=== PATIENT | male | born 1985 | race Two or more races ===

== ENCOUNTER 2019-11-29 14:17 | Inpatient (IN) | payer BC ==
[~2019-11-29] VITALS: Ht 177.8 cm; Wt 117.4 kg
--- NOTE | 2019-11-29 14:28 | PHYS DOC ---
Past Medical History Past Medical History: Diabetes-Type II (PRE) Past Medical History COVID 10/25 Alcohol Use: Occasionally General Adult EDM: Chief Complaint: CHEST PAIN HPI: HPI: Patient is a 34 year old female who presents with a chief complaint of chest pain that began about 4 hours prior to arrival. Patient describes burning sharp epigastric pain radiating up into the chest. Patient has nausea but no shortness of breath. Pain is worse with movement and deep breaths. Patient had COVID-19 about 7 weeks ago but has since recovered. Patient denies any recent fever or cough. Pain is 10 out of 10 at times but 5 out of 10 currently Review of Systems: Review of Systems: Constitutional: Denies fever or chills. [] Eyes: Denies change in visual acuity. [] HENT: Denies nasal congestion or sore throat. [] Respiratory: Denies cough or shortness of breath. [] Cardiovascular: Complains of chest pain but no edema GI: Complains of epigastric pain, nausea but no vomiting diarrhea : Denies dysuria. [] Musculoskeletal: Denies back pain or joint pain. [] Integument: Denies rash. [] Neurologic: Denies headache, focal weakness or sensory changes. [] Endocrine: Endorses polyuria and polydipsia Lymphatic: Denies swollen glands. [] Psychiatric: Denies depression or anxiety. [] Heart Score: Risk Factors: Risk Factors: DM, Current or recent (<one month) smoker, HTN, HLP, family history of CAD, obesity. Risk Scores: Score 0 - 3: 2.5% MACE over next 6 weeks - Discharge Home Score 4 - 6: 20.3% MACE over next 6 weeks - Admit for Clinical Observation Score 7 - 10: 72.7% MACE over next 6 weeks - Early Invasive Strategies Physical Exam: PE: Constitutional: Well developed, moderate distress non-toxic appearance. [] HENT: Normocephalic, atraumatic, bilateral external ears normal, no trismus nose normal. [] Eyes: PERRLA, EOMI, conjunctiva normal, no discharge. [] Neck: Normal range of motion, no tenderness, supple, no stridor. [] Cardiovascular:Heart rate regular rhythm, peripheral pulses intact, cap refill brisk Lungs & Thorax: Bilateral breath sounds clear, no respiratory distress Abdomen: Epigastric tenderness with guarding but no rebound no masses, no pulsatile masses. [] Skin: Warm, dry, no erythema, no rash. [] Back: No tenderness, no CVA tenderness. [] Extremities: No tenderness, no cyanosis, no clubbing, ROM intact, no edema. [] Neurologic: Alert and oriented X 3, normal motor function, normal sensory function, no focal deficits noted. [] Psychologic: Affect normal, judgement normal, mood normal. [] Current Patient Data: Labs: Laboratory Tests Test 11/29/19 14:58 11/29/19 15:28 Sodium Level 130 mmol/L Potassium Level 5.1 mmol/L Chloride Level 93 mmol/L Carbon Dioxide Level 18 mmol/L Anion Gap 19 Blood Urea Nitrogen 13 mg/dL Creatinine 0.7 mg/dL Estimated GFR (Cockcroft-Gault) 130.7 BUN/Creatinine Ratio 19 Glucose Level 440 mg/dL Calcium Level 9.4 mg/dL Total Bilirubin 1.0 mg/dL Aspartate Amino Transf (AST/SGOT) 32 U/L Alanine Aminotransferase (ALT/SGPT) 48 U/L Alkaline Phosphatase 142 U/L Troponin I Quantitative < 0.017 ng/mL Total Protein 7.7 g/dL Albumin 4.0 g/dL Albumin/Globulin Ratio 1.1 Triglycerides Level 3702 mg/dL Lipase 8452 U/L White Blood Count 16.6 x10^3/uL Red Blood Count 5.29 x10^6/uL Hemoglobin 14.1 g/dL Hematocrit 46.5 % Mean Corpuscular Volume 88 fL Mean Corpuscular Hemoglobin 27 pg Mean Corpuscular Hemoglobin Concent 30 g/dL Red Cell Distribution Width 13.6 % Platelet Count 273 x10^3/uL Neutrophils (%) (Auto) 76 % Lymphocytes (%) (Auto) 16 % Monocytes (%) (Auto) 7 % Eosinophils (%) (Auto) 1 % Basophils (%) (Auto) 1 % Neutrophils # (Auto) 12.6 x10^3/uL Lymphocytes # (Auto) 2.6 x10^3/uL Monocytes # (Auto) 1.1 x10^3/uL Eosinophils # (Auto) 0.2 x10^3/uL Basophils # (Auto) 0.1 x10^3/uL Segmented Neutrophils % 76 % Band Neutrophils % 6 % Lymphocytes % 15 % Monocytes % 3 % Toxic Granulation Slight Toxic Vacuolation Slight Platelet Estimate Adequate Current Medications Medications (Trade) Dose Ordered Sig/Cecelia Route PRN Reason Start Time Stop Time Status Last Admin Dose Admin Morphine Sulfate (Morphine Sulfate) 4 mg 1X ONCE IV 11/29/19 14:45 11/29/19 14:46 DC 11/29/19 15:01 Ondansetron HCl (Zofran) 4 mg 1X ONCE IVP 11/29/19 14:45 11/29/19 14:46 DC 11/29/19 15:00 Hydromorphone HCl (Dilaudid) 1 mg 1X ONCE IVP 11/29/19 16:00 11/29/19 16:02 DC 11/29/19 16:15 Sodium Chloride 1,000 ml @ 1,000 mls/hr 1X ONCE IV 11/29/19 16:30 11/29/19 17:29 11/29/19 16:25 Sodium Chloride 1,000 ml @ 1,000 mls/hr 1X ONCE IV 11/29/19 16:30 11/29/19 17:29 11/29/19 16:26 Insulin Human Regular 100 unit/ Sodium Chloride 101 ml @ 0 mls/hr CONT PRN IV SEE I/O RECORD 11/29/19 16:15 Ondansetron HCl (Zofran) 4 mg PRN Q8HRS PRN IV NAUSEA/VOMITING 11/29/19 16:45 11/30/19 16:44 Morphine Sulfate (Morphine Sulfate) 4 mg PRN Q2HR PRN IV PAIN 11/29/19 16:45 11/30/19 16:44 Acetaminophen (Tylenol) 650 mg PRN Q6HRS PRN PO Headaches, Temp > 101.5' 11/29/19 16:30 Lorazepam (Ativan) 1 mg PRN Q6HRS PRN PO ANXIETY / AGITATION 11/29/19 16:30 Ondansetron HCl (Zofran) 4 mg PRN Q6HRS PRN IVP NAUSEA/VOMITING 11/29/19 16:30 Info (Icu Electrolyte Protocol) 1 ea DAILY MC 11/30/19 09:00 Enoxaparin Sodium (Lovenox 40mg Syringe) 40 mg Q24H SQ 11/29/19 17:00 Sodium Chloride (Normal Saline Flush) 3 ml QSHIFT PRN IV AFTER MEDS AND BLOOD DRAWS 11/29/19 16:30 Acetaminophen/ Hydrocodone Bitart (Lortab 5/325) 1 tab PRN Q4HRS PRN PO MILD PAIN, 2ND CHOICE 11/29/19 16:30 Morphine Sulfate (Morphine Sulfate) 2 mg PRN Q1HR PRN IV PAIN 11/29/19 16:30 Senna/Docusate Sodium (Senna Plus) 1 tab BID PO 11/29/19 21:00 Sodium Chloride 1,000 ml @ 1,000 mls/hr Q1H IV 11/29/19 16:30 11/29/19 17:29 Sodium Chloride 1,000 ml @ 500 mls/hr Q2H IV 11/29/19 16:31 11/29/19 18:30 Sodium Chloride 1,000 ml @ 250 mls/hr Q4H IV 11/29/19 16:33 Sodium Chloride 1,000 ml @ 250 mls/hr Q4H IV 11/29/19 16:33 Dextrose/Sodium Chloride 1,000 ml @ 250 mls/hr Q4H IV 11/29/19 16:33 Insulin Human Regular 100 unit/ Sodium Chloride 101 ml @ 0 mls/hr CONT PRN PRN IV DKA 11/29/19 16:30 Potassium Chloride/Water 100 ml @ 100 mls/hr PRN Q1HR PRN IV HYPOKALEMIA 11/29/19 16:30 Vital Signs: Vital Signs Date Time Temp Pulse Resp B/P (MAP) Pulse Ox O2 Delivery O2 Flow Rate FiO2 11/29/19 16:50 16 99 11/29/19 16:15 20 99 Room Air 11/29/19 15:26 84 158/96 (116) 96 Room Air 11/29/19 15:01 16 96 Room Air 11/29/19 14:56 79 154/87 (109) 96 Room Air 11/29/19 14:26 77 159/101 (120) 100 Room Air 11/29/19 14:20 98.0 79 18 159/101 (120) 99 Room Air 98.0 EKG: EKG: [] EKG interpreted by me normal sinus rhythm with a rate of 70 normal axis T wave inversions in anterior leads Radiology/Procedures: Radiology/Procedures: [][facility] [address] [place], [place] [id number] IMAGING REPORT Signed PATIENT: ALFONSO BLACKBURN ACCOUNT: [id number] : 1985 LOCATION: ER AGE: 34 SEX: M EXAM STATUS: PRE ER ORD. PHYSICIAN: KO ENRIQUEZ MD REASON: CP PROCEDURE: PORTABLE CHEST 1V PORTABLE CHEST 1V Clinical indications: Chest pain COMPARISON: None available. Findings: No acute lung infiltrate or pleural effusion or pulmonary edema or lung mass or pneumothorax is seen. The heart size, pulmonary vasculature, mediastinum and both martha are unremarkable. Impression: No acute radiographic abnormality is seen. Electronically signed by: Madison Sommer MD (11/29/2019 2:48 PM) [id number] DICTATED and SIGNED BY: MADISON SOMMER MD DATE: 11/29/19 1448 Course & Med Decision Making: Course & Med Decision Making Pertinent Labs and Imaging studies reviewed. (See chart for details) [] 34-year-old male presents with epigastric pain. Patient found to have extremely high triglycerides and we cannot do a d-dimer. Patient with tenderness and guarding in epigastric area. Labs show DKA as well as pancreatitis and hypertriglyceridemia. Patient will be given 2 L of fluids and an insulin infusion. On reassessment patient does feel better but still has some abdominal pain. Patient being admitted to the ICU by Dr. chavez Critical care time was [35] minutes which includes time at bedside, spent in discussion of patient's care with specialist and/or family members, with interpretation of laboratory and/or radiological studies and is exclusive of procedures. Critical conditions: Hypertriglyceridemia, DKA, pancreatitis Critical interventions IV fluids and insulin infusion and admission to ICU Dragon Disclaimer: Mora Disclaimer: This electronic medical record was generated, in whole or in part, using a voice recognition dictation system. Departure Departure Impression: Primary Impression: Pancreatitis Additional Impressions: Hypertriglyceridemia Chest pain DKA (diabetic ketoacidoses) Disposition: ADMITTED INPATIENT Condition: GUARDED Justicifation of Admission Dx: Justifications for Admission: Justification of Admission Dx: Yes KO ENRIQUEZ MD Nov 29, 2019 14:28
[2019-11-29] MEDS ORDERED: ONDANSETRON PF 4 MG/2 ML VIAL. IVP ONE (14:45)
[2019-11-29] MEDS ORDERED: MORPHINE SULFATE 4 MG/ML VIAL. IV ONE (14:45)
--- NOTE | 2019-11-29 14:51 | RAD ---
PORTABLE CHEST 1V Clinical indications: Chest pain COMPARISON: None available. Findings: No acute lung infiltrate or pleural effusion or pulmonary edema or lung mass or pneumothorax is seen. The heart size, pulmonary vasculature, mediastinum and both martha are unremarkable. Impression: No acute radiographic abnormality is seen. Electronically signed by: Preston Sommer MD (11/29/2019 2:48 PM) [id number]
[2019-11-29 15:52] LABS: ALBUMIN/GLOBULIN RATIO 1.1 (1.0-1.7); CALCIUM 9.4 mg/dL (8.5-10.1); CREATININE 0.7 mg/dL (0.7-1.3); GFR 130.7; POTASSIUM 5.1 mmol/L (3.5-5.1)
[2019-11-29 15:57] LABS: TOTAL PROTEIN 7.7 g/dL (6.4-8.2)
[2019-11-29] MEDS ORDERED: HYDROmorphone 2 MG/ML VIAL IVP ONE (16:00)
[2019-11-29 16:15] LABS: HEMATOCRIT 46.5 % (39.0-53.0); MEAN CORPUSCULAR HEMOGLOBIN 27 pg (25-35); MEAN CORPUSCULAR HGB CONC 30 g/dL (31-37); MEAN CORPUSCULAR VOLUME 88 fL (79-100); RED BLOOD COUNT 5.29 x10^6/uL (4.30-5.70); WHITE BLOOD COUNT 16.6 x10^3/uL (4.0-11.0)
[2019-11-29] MEDS ORDERED: INSULIN REGULAR VIAL 100 UNIT in IV NORMAL SALINE 100ML 100 ML IV PRN (16:15)
[2019-11-29 16:16] LABS: EOS % 1 % (0-3); LYMPH % 16 % (24-48); MONO % 7 % (0-9); NEUT % 76 % (31-73); PLATELET COUNT 273 x10^3/uL (140-400); RED CELL DISTRIBUTION WIDTH 13.6 % (11.5-14.5)
[2019-11-29 16:17] LABS: BASO % 1 % (0-3); LYMPH # 2.6 x10^3/uL (1.0-4.8); MONO # 1.1 x10^3/uL (0.0-1.1); NEUT # 12.6 x10^3/uL (1.8-7.7)
[2019-11-29 16:21] LABS: HEMOGLOBIN 14.1 g/dL (13.0-17.5)
[2019-11-29 16:22] LABS: BASO # 0.1 x10^3/uL (0.0-0.2); EOS # 0.2 x10^3/uL (0.0-0.7)
[2019-11-29] MEDS ORDERED: 0.9 % SODIUM CHLORIDE 10 ML DISP.SYRIN. IV PRN (16:30)
[2019-11-29] MEDS ORDERED: IV NORMAL SALINE 1000ML BAG 1,000 ML IV ONE ×2 (16:30)
[2019-11-29] MEDS ORDERED: IV NORMAL SALINE 1000ML BAG 1,000 ML IV SCH ×3 (16:30→19:30)
[2019-11-29] MEDS ORDERED: MORPHINE SULFATE 2 MG/ML VIAL. IV PRN (16:30)
[2019-11-29] MEDS ORDERED: ACETAMINOPHEN 325 MG TABLET. PO PRN (16:30)
[2019-11-29] MEDS ORDERED: ONDANSETRON PF 4 MG/2 ML VIAL. IVP PRN (16:30)
[2019-11-29] MEDS ORDERED: POTASSIUM CHLORIDE 10MEQ 100 ML IV PRN (16:30)
[2019-11-29] MEDS ORDERED: LORazepam 1 MG TABLET PO PRN (16:30)
[2019-11-29] MEDS ORDERED: IV 1/2 NORMAL SALINE 1,000 ML IV SCH ×2 (16:31→16:33)
[2019-11-29] MEDS ORDERED: IV DEXTROSE 5 %-0.45 % NACL 1,000 ML IV SCH (16:33)
[2019-11-29] MEDS ORDERED: ONDANSETRON PF 4 MG/2 ML VIAL. IV PRN (16:45)
[2019-11-29 16:48] LABS: % BANDS 6 % (0-9); % LYMPHS 15 % (24-48); % MONOS 3 % (0-10); % SEGS 76 % (35-66); PLT ESTIMATE ADEQUATE (ADEQUATE)
[2019-11-29 16:49] LABS: TOXIC GRANULATION SLIGHT; TOXIC VACUOLATION SLIGHT
--- NOTE | 2019-11-29 17:39 | PDOC1 ---
History and Physical Date of Admission Date of Admission 11/29/2019 Identification/Chief Complaint Chief Complaint My stomach hurts Source Source: Chart review, Patient History of Present Illness History of Present Illness 34-year-old gentleman with no significant past medical history who was in his usual state of health until approximately 3 weeks prior to his admission when he started noticing increased urination more thirst than usual. Patient denies odynophagia and he has been in his usual state of health until this morning around 10:00 in the morning he had not eaten yet and after drinking a glass of water he had the sudden onset of epigastric pain with vomiting of the gastric content. The patient felt quite ill with subsequent nausea after the event no diarrhea no dietary transgressions prior to this event. The patient due to the discomfort was brought to the emergency department for evaluation the patient did not also complain of an epigastric pain with bandlike fashion radiation to t he back that he rated at a 10 out of 10 intensity sharp in nature with no other associated symptoms except for the above-mentioned nausea and vomiting. He has been evaluated in the emergency department and found to have hypertriglyceridemia and he is in DKA. Of note is that the patient was told about a month ago that he was prediabetic but most likely the patient has been a diabetic for a long time. He denies any family history of dyslipidemia and he will be admitted to the intensive care unit for further evaluation and treatment. The patient is in hemodynamically stable condition his mental status is normal plan of care has been explained detail all concerns were addressed to the best my ability Past Medical History Past Medical History No significant past medical history Past Surgical History Past Surgical History: No pertinent history Family History Family History: No Significant Social History Smoke: No ALCOHOL: none Drugs: None Current Problem List Problem List Problems Medical Problems: (1) Chest pain Status: Acute (2) DKA (diabetic ketoacidoses) Status: Acute (3) Hypertriglyceridemia Status: Acute (4) Pancreatitis Status: Acute Current Medications Current Medications Current Medications Medications (Trade) Dose Ordered Sig/Cecelia Start Time Stop Time Status Last Admin Dose Admin Acetaminophen (Tylenol) 650 mg PRN Q6HRS PRN 11/29/19 16:30 Acetaminophen/ Hydrocodone Bitart (Lortab 5/325) 1 tab PRN Q4HRS PRN 11/29/19 16:30 Dextrose/Sodium Chloride 1,000 ml @ 250 mls/hr Q4H 11/29/19 16:33 Enoxaparin Sodium (Lovenox 40mg Syringe) 40 mg Q24H 11/29/19 17:00 Hydromorphone HCl (Dilaudid) 1 mg 1X ONCE 11/29/19 16:00 11/29/19 16:02 DC 11/29/19 16:15 1 MG Info (Icu Electrolyte Protocol) 1 ea DAILY 11/30/19 09:00 Insulin Human Regular 100 unit/ Sodium Chloride 101 ml @ 0 mls/hr CONT PRN PRN 11/29/19 16:30 Lorazepam (Ativan) 1 mg PRN Q6HRS PRN 11/29/19 16:30 Morphine Sulfate (Morphine Sulfate) 2 mg PRN Q1HR PRN 11/29/19 16:30 Ondansetron HCl (Zofran) 4 mg PRN Q6HRS PRN 11/29/19 16:30 Potassium Chloride/Water 100 ml @ 100 mls/hr PRN Q1HR PRN 11/29/19 16:30 Senna/Docusate Sodium (Senna Plus) 1 tab BID 11/29/19 21:00 Sodium Chloride 1,000 ml @ 250 mls/hr Q4H 11/29/19 16:33 Sodium Chloride (Normal Saline Flush) 3 ml QSHIFT PRN 11/29/19 16:30 Allergies Allergies Allergies Coded Allergies Type Severity Reaction Last Updated Verified No Known Drug Allergies 11/29/19 No ROS Review of System CONSTITUTIONAL: No fever or chills EYES: No recent changes SKIN: No rash or itching CARDIOVASCULAR: No chest pain, syncope, palpitations, or edema RESPIRATORY: No SOB or cough GASTROINTESTINAL: No nausea, vomiting or abdominal pain NEUROLOGICAL: No headaches or weakness ENDOCRINE: No cold or heat intolerance GENITOURINARY: No urgency or frequency of urination MUSCULOSKELETAL: No back pain or joint pain LYMPHATICS: No enlarged lymph nodes PSYCHIATRIC: No anxiety or depression Physical Exam Physical Exam GEN.: No apparent distress. Alert and oriented. HEENT: Head is normocephalic, atraumatic NECK: Supple. LUNGS: Clear to auscultation. HEART: RRR, S1, S2 present. Peripheral pulses intact ABDOMEN: Soft, nontender. Positive bowel sounds. EXTREMITIES: Without any cyanosis. NEUROLOGIC: Normal speech, normal tone PSYCHIATRIC: Normal affect, normal mood. SKIN: No ulcerations Vitals Vitals Vital Signs Date Time Temp Pulse Resp B/P (MAP) Pulse Ox O2 Delivery O2 Flow Rate FiO2 11/29/19 16:50 16 99 11/29/19 16:15 Room Air 11/29/19 15:26 84 158/96 (116) 11/29/19 14:20 98.0 98.0 Labs Labs Laboratory Tests Test 11/29/19 14:58 11/29/19 15:28 Sodium Level 130 mmol/L (136-145) Potassium Level 5.1 mmol/L (3.5-5.1) Chloride Level 93 mmol/L (98-107) Carbon Dioxide Level 18 mmol/L (21-32) Anion Gap 19 (6-14) Blood Urea Nitrogen 13 mg/dL (8-26) Creatinine 0.7 mg/dL (0.7-1.3) Estimated GFR (Cockcroft-Gault) 130.7 BUN/Creatinine Ratio 19 (6-20) Glucose Level 440 mg/dL (70-99) Calcium Level 9.4 mg/dL (8.5-10.1) Total Bilirubin 1.0 mg/dL (0.2-1.0) Aspartate Amino Transf (AST/SGOT) 32 U/L (15-37) Alanine Aminotransferase (ALT/SGPT) 48 U/L (16-63) Alkaline Phosphatase 142 U/L (46-116) Troponin I Quantitative < 0.017 ng/mL (0.000-0.055) Total Protein 7.7 g/dL (6.4-8.2) Albumin 4.0 g/dL (3.4-5.0) Albumin/Globulin Ratio 1.1 (1.0-1.7) Triglycerides Level 3702 mg/dL (0-150) Lipase 8452 U/L (73-393) White Blood Count 16.6 x10^3/uL (4.0-11.0) Red Blood Count 5.29 x10^6/uL (4.30-5.70) Hemoglobin 14.1 g/dL (13.0-17.5) Hematocrit 46.5 % (39.0-53.0) Mean Corpuscular Volume 88 fL (79-100) Mean Corpuscular Hemoglobin 27 pg (25-35) Mean Corpuscular Hemoglobin Concent 30 g/dL (31-37) Red Cell Distribution Width 13.6 % (11.5-14.5) Platelet Count 273 x10^3/uL (140-400) Neutrophils (%) (Auto) 76 % (31-73) Lymphocytes (%) (Auto) 16 % (24-48) Monocytes (%) (Auto) 7 % (0-9) Eosinophils (%) (Auto) 1 % (0-3) Basophils (%) (Auto) 1 % (0-3) Neutrophils # (Auto) 12.6 x10^3/uL (1.8-7.7) Lymphocytes # (Auto) 2.6 x10^3/uL (1.0-4.8) Monocytes # (Auto) 1.1 x10^3/uL (0.0-1.1) Eosinophils # (Auto) 0.2 x10^3/uL (0.0-0.7) Basophils # (Auto) 0.1 x10^3/uL (0.0-0.2) Segmented Neutrophils % 76 % (35-66) Band Neutrophils % 6 % (0-9) Lymphocytes % 15 % (24-48) Monocytes % 3 % (0-10) Toxic Granulation Slight Toxic Vacuolation Slight Platelet Estimate Adequate (ADEQUATE) Laboratory Tests Test 11/29/19 14:58 11/29/19 15:28 Sodium Level 130 mmol/L (136-145) Potassium Level 5.1 mmol/L (3.5-5.1) Chloride Level 93 mmol/L (98-107) Carbon Dioxide Level 18 mmol/L (21-32) Anion Gap 19 (6-14) Blood Urea Nitrogen 13 mg/dL (8-26) Creatinine 0.7 mg/dL (0.7-1.3) Estimated GFR (Cockcroft-Gault) 130.7 BUN/Creatinine Ratio 19 (6-20) Glucose Level 440 mg/dL (70-99) Calcium Level 9.4 mg/dL (8.5-10.1) Total Bilirubin 1.0 mg/dL (0.2-1.0) Aspartate Amino Transf (AST/SGOT) 32 U/L (15-37) Alanine Aminotransferase (ALT/SGPT) 48 U/L (16-63) Alkaline Phosphatase 142 U/L (46-116) Troponin I Quantitative < 0.017 ng/mL (0.000-0.055) Total Protein 7.7 g/dL (6.4-8.2) Albumin 4.0 g/dL (3.4-5.0) Albumin/Globulin Ratio 1.1 (1.0-1.7) Triglycerides Level 3702 mg/dL (0-150) Lipase 8452 U/L (73-393) White Blood Count 16.6 x10^3/uL (4.0-11.0) Red Blood Count 5.29 x10^6/uL (4.30-5.70) Hemoglobin 14.1 g/dL (13.0-17.5) Hematocrit 46.5 % (39.0-53.0) Mean Corpuscular Volume 88 fL (79-100) Mean Corpuscular Hemoglobin 27 pg (25-35) Mean Corpuscular Hemoglobin Concent 30 g/dL (31-37) Red Cell Distribution Width 13.6 % (11.5-14.5) Platelet Count 273 x10^3/uL (140-400) Neutrophils (%) (Auto) 76 % (31-73) Lymphocytes (%) (Auto) 16 % (24-48) Monocytes (%) (Auto) 7 % (0-9) Eosinophils (%) (Auto) 1 % (0-3) Basophils (%) (Auto) 1 % (0-3) Neutrophils # (Auto) 12.6 x10^3/uL (1.8-7.7) Lymphocytes # (Auto) 2.6 x10^3/uL (1.0-4.8) Monocytes # (Auto) 1.1 x10^3/uL (0.0-1.1) Eosinophils # (Auto) 0.2 x10^3/uL (0.0-0.7) Basophils # (Auto) 0.1 x10^3/uL (0.0-0.2) Segmented Neutrophils % 76 % (35-66) Band Neutrophils % 6 % (0-9) Lymphocytes % 15 % (24-48) Monocytes % 3 % (0-10) Toxic Granulation Slight Toxic Vacuolation Slight Platelet Estimate Adequate (ADEQUATE) VTE Prophylaxis Ordered VTE Prophylaxis Devices: No VTE Pharmacological Prophylaxi: Yes Assessment/Plan Assessment/Plan Diabetic ketoacidosis High anion gap metabolic acidosis Pancreatitis secondary to hypertriglyceridemia Obesity with a BMI of 35 Severe dehydration Pseudohyponatremia Plan Admit to ICU DKA Follow BMP serially IV fluid resisted Insulin drip VT prophylaxis low Further recommendations based on the clinical DEBORAH PONCE MD Nov 29, 2019 17:39
[2019-11-29] MEDS: MORPHINE SULFATE 4 MG/ML VIAL. IV PRN ×3 (18:17→22:57)
[2019-11-29] MEDS: INSULIN REGULAR VIAL 100 UNIT in IV NORMAL SALINE 100ML 100 ML IV PRN (18:41)
[2019-11-29 19:00] VITALS: BP 180/88
[2019-11-29] MEDS: fentaNYL PF VIAL 100 MCG/2 ML VIAL IVP PRN ×2 (19:30→22:19)
[2019-11-29] MEDS: ENOXAPARIN 40 MG/0.4 ML SYRINGE. SQ SCH (19:34)
[2019-11-29 20:00] VITALS: BP 173/94
[2019-11-29 20:41] LABS: CREATININE 0.5 mg/dL (0.7-1.3); GFR 192.7; PHOSPHORUS 4.3 mg/dL (2.6-4.7)
[2019-11-29 20:44] LABS: POTASSIUM 4.7 mmol/L (3.5-5.1)
[2019-11-29] MEDS: SENNOSIDES/DOCUSATE 8.6/50MG TABLET. PO SCH (20:58)
[2019-11-29 21:00] VITALS: BP 160/90
[2019-11-29] MEDS: HYDROcodone/APAP 5/325MG 1 TAB TABLET PO PRN (21:12)
[2019-11-29] MEDS: POTASSIUM CHLORIDE 10MEQ 100 ML IV SCH ×2 (21:12→22:12)
[2019-11-29 22:00] VITALS: BP 180/86
[2019-11-29] MEDS ORDERED: ENALAPRILAT 1.25 MG/ML VIAL. IVP PRN (22:00)
[2019-11-29 23:00] VITALS: BP 154/69
[2019-11-29] MEDS: IV DEXTROSE 5% - 0.9 % NACL 1,000 ML IV SCH (23:07)
[2019-11-30] VITALS (16 sets, daily range): BP systolic 114–158; BP diastolic 49–86
[2019-11-30 00:42] LABS: CALCIUM 7.3 mg/dL (8.5-10.1); CREATININE 0.5 mg/dL (0.7-1.3); GFR 192.7; PHOSPHORUS 3.8 mg/dL (2.6-4.7)
[2019-11-30] MEDS: MORPHINE SULFATE 4 MG/ML VIAL. IV PRN ×9 (00:54→21:06)
[2019-11-30] MEDS: POTASSIUM CHLORIDE 10MEQ 100 ML IV SCH ×4 (00:57→07:48)
[2019-11-30] MEDS: INSULIN REGULAR VIAL 100 UNIT in IV NORMAL SALINE 100ML 100 ML IV PRN (02:49)
[2019-11-30] MEDS: IV NORMAL SALINE 1000ML BAG 1,000 ML IV SCH ×6 (02:59→23:00)
[2019-11-30] MEDS: IV DEXTROSE 5% - 0.9 % NACL 1,000 ML IV SCH ×6 (02:59→21:07)
[2019-11-30 05:30] LABS: BASO # 0.1 x10^3/uL (0.0-0.2); BASO % 1 % (0-3); EOS # 0.1 x10^3/uL (0.0-0.7); EOS % 1 % (0-3); HEMATOCRIT 45.3 % (39.0-53.0); LYMPH # 2.1 x10^3/uL (1.0-4.8); LYMPH % 21 % (24-48); MEAN CORPUSCULAR VOLUME 87 fL (79-100); MONO # 0.7 x10^3/uL (0.0-1.1); MONO % 7 % (0-9); NEUT # 7.1 x10^3/uL (1.8-7.7); NEUT % 71 % (31-73); PLATELET COUNT 237 x10^3/uL (140-400); RED BLOOD COUNT 5.19 x10^6/uL (4.30-5.70); RED CELL DISTRIBUTION WIDTH 13.5 % (11.5-14.5); WHITE BLOOD COUNT 10.1 x10^3/uL (4.0-11.0)
[2019-11-30 05:52] LABS: CALCIUM 6.1 mg/dL (8.5-10.1); CREATININE 0.6 mg/dL (0.7-1.3); GFR 156.1; MAGNESIUM 1.8 mg/dL (1.8-2.4); PHOSPHORUS 2.5 mg/dL (2.6-4.7)
[2019-11-30 05:58] LABS: MEAN CORPUSCULAR HEMOGLOBIN 30 pg (25-35); MEAN CORPUSCULAR HGB CONC 35 g/dL (31-37)
[2019-11-30 06:00] LABS: HEMOGLOBIN 15.8 g/dL (13.0-17.5)
--- NOTE | 2019-11-30 07:46 | EKG ---
[facility] [address] [place] [address] Test Date: 2019-11-29 Test Time: 14:21:23 Pat Name: ALFONSO BLACKBURN Department: Room: Gender: M [employer] Officer: EFRAIN : 1985 Requested By: KO ENRIQUEZ Order Number: [id number] Reading MD: Measurements Intervals [place] Rate: 70 P: 9 IN: 126 QRS: 82 QRSD: 104 T: -20 QT: 376 QTc: 409 Interpretive Statements SINUS RHYTHM T ABNORMALITY IN INFERIOR LEADS ABNORMAL ECG RI6.02 No previous ECG available for comparison
[2019-11-30] MEDS: INSULIN LISPRO 300 UNITS/3 ML VIAL. SQ SCH ×3 (08:28→17:53)
[2019-11-30] MEDS ORDERED: INSULIN GLARGINE SYRINGE. SQ SCH (09:00)
[2019-11-30] MEDS: ELECTROLYTE (ICU) PROTOCOL. MC SCH (09:00)
[2019-11-30] MEDS: SENNOSIDES/DOCUSATE 8.6/50MG TABLET. PO SCH ×2 (09:00→21:00)
[2019-11-30 10:05] LABS: CALCIUM 6.3 mg/dL (8.5-10.1); CREATININE 0.7 mg/dL (0.7-1.3); GFR 130.7; MAGNESIUM 1.8 mg/dL (1.8-2.4); PHOSPHORUS 2.3 mg/dL (2.6-4.7); POTASSIUM 3.8 mmol/L (3.5-5.1)
--- NOTE | 2019-11-30 10:55 | NUR ---
SS following for discharge planning. SS reviewed pt chart and discussed with pt RN. Pt is from home with family and is currently on room air. Pt has new onset diabetes and pancreatitis. Discharge plan is to home when medically ready. SS will continue to follow for discharge planning.
--- NOTE | 2019-11-30 11:56 | PDOC ---
PROGRESS NOTES Date of Service: DATE: 11/30/19 TIME: 11:52 Chief Complaint Chief Complaint Diabetic ketoacidosis New diagnosis of diabetes, hba1c pending High anion gap metabolic acidosis Pancreatitis secondary to hypertriglyceridemia Obesity with a BMI of 35 Severe dehydration Pseudohyponatremia Plan may be moved out of the icu when bed available follow hba1c lantus and lispro VT prophylaxis low Further recommendations based on the clinical History of Present Illness History of Present Illness No acute events reported overnight, case discussed with nursing staff patient in no acute distress no complaints during my visit, still complaining of abdominal discomfort Vitals Vitals Vital Signs Date Time Temp Pulse Resp B/P (MAP) Pulse Ox O2 Delivery O2 Flow Rate FiO2 11/30/19 10:00 87 14 136/75 (95) 92 Room Air 11/30/19 08:00 98.1 98.1 Labs LABS Laboratory Tests Test 11/29/19 14:58 11/29/19 15:28 11/29/19 18:30 11/29/19 18:35 Sodium Level 130 mmol/L (136-145) Potassium Level 5.1 mmol/L (3.5-5.1) Chloride Level 93 mmol/L (98-107) Carbon Dioxide Level 18 mmol/L (21-32) Anion Gap 19 (6-14) Blood Urea Nitrogen 13 mg/dL (8-26) Creatinine 0.7 mg/dL (0.7-1.3) Estimated GFR (Cockcroft-Gault) 130.7 BUN/Creatinine Ratio 19 (6-20) Glucose Level 440 mg/dL (70-99) Calcium Level 9.4 mg/dL (8.5-10.1) Total Bilirubin 1.0 mg/dL (0.2-1.0) Aspartate Amino Transf (AST/SGOT) 32 U/L (15-37) Alanine Aminotransferase (ALT/SGPT) 48 U/L (16-63) Alkaline Phosphatase 142 U/L (46-116) Troponin I Quantitative < 0.017 ng/mL (0.000-0.055) < 0.017 ng/mL (0.000-0.055) Total Protein 7.7 g/dL (6.4-8.2) Albumin 4.0 g/dL (3.4-5.0) Albumin/Globulin Ratio 1.1 (1.0-1.7) Triglycerides Level 3702 mg/dL (0-150) Lipase 8452 U/L (73-393) White Blood Count 16.6 x10^3/uL (4.0-11.0) Red Blood Count 5.29 x10^6/uL (4.30-5.70) Hemoglobin 14.1 g/dL (13.0-17.5) Hematocrit 46.5 % (39.0-53.0) Mean Corpuscular Volume 88 fL (79-100) Mean Corpuscular Hemoglobin 27 pg (25-35) Mean Corpuscular Hemoglobin Concent 30 g/dL (31-37) Red Cell Distribution Width 13.6 % (11.5-14.5) Platelet Count 273 x10^3/uL (140-400) Neutrophils (%) (Auto) 76 % (31-73) Lymphocytes (%) (Auto) 16 % (24-48) Monocytes (%) (Auto) 7 % (0-9) Eosinophils (%) (Auto) 1 % (0-3) Basophils (%) (Auto) 1 % (0-3) Neutrophils # (Auto) 12.6 x10^3/uL (1.8-7.7) Lymphocytes # (Auto) 2.6 x10^3/uL (1.0-4.8) Monocytes # (Auto) 1.1 x10^3/uL (0.0-1.1) Eosinophils # (Auto) 0.2 x10^3/uL (0.0-0.7) Basophils # (Auto) 0.1 x10^3/uL (0.0-0.2) Segmented Neutrophils % 76 % (35-66) Band Neutrophils % 6 % (0-9) Lymphocytes % 15 % (24-48) Monocytes % 3 % (0-10) Toxic Granulation Slight Toxic Vacuolation Slight Platelet Estimate Adequate (ADEQUATE) Magnesium Level 1.9 mg/dL (1.8-2.4) Glucose (Fingerstick) 311 mg/dL (70-99) Test 11/29/19 19:28 11/29/19 19:51 11/29/19 19:58 11/29/19 20:55 Sodium Level 133 mmol/L (136-145) Potassium Level 4.7 mmol/L (3.5-5.1) Chloride Level 97 mmol/L (98-107) Carbon Dioxide Level 16 mmol/L (21-32) Anion Gap 20 (6-14) Blood Urea Nitrogen 11 mg/dL (8-26) Creatinine 0.5 mg/dL (0.7-1.3) Estimated GFR (Cockcroft-Gault) 192.7 Glucose Level 284 mg/dL (70-99) Calcium Level 8.0 mg/dL (8.5-10.1) Phosphorus Level 4.3 mg/dL (2.6-4.7) Magnesium Level 2.0 mg/dL (1.8-2.4) Glucose (Fingerstick) 277 mg/dL (70-99) 270 mg/dL (70-99) Troponin I Quantitative < 0.017 ng/mL (0.000-0.055) Test 11/29/19 21:58 11/29/19 23:02 11/29/19 23:51 11/29/19 23:57 Glucose (Fingerstick) 252 mg/dL (70-99) 241 mg/dL (70-99) 265 mg/dL (70-99) Sodium Level 133 mmol/L (136-145) Potassium Level 5.0 mmol/L (3.5-5.1) Chloride Level 99 mmol/L (98-107) Carbon Dioxide Level 18 mmol/L (21-32) Anion Gap 16 (6-14) Blood Urea Nitrogen 11 mg/dL (8-26) Creatinine 0.5 mg/dL (0.7-1.3) Estimated GFR (Cockcroft-Gault) 192.7 Glucose Level 271 mg/dL (70-99) Calcium Level 7.3 mg/dL (8.5-10.1) Phosphorus Level 3.8 mg/dL (2.6-4.7) Magnesium Level 2.0 mg/dL (1.8-2.4) Test 11/30/19 00:52 11/30/19 01:52 11/30/19 02:55 11/30/19 03:53 Glucose (Fingerstick) 258 mg/dL (70-99) 263 mg/dL (70-99) 261 mg/dL (70-99) 212 mg/dL (70-99) Test 11/30/19 04:51 11/30/19 05:15 11/30/19 05:51 11/30/19 06:36 Glucose (Fingerstick) 224 mg/dL (70-99) 207 mg/dL (70-99) 201 mg/dL (70-99) White Blood Count 10.1 x10^3/uL (4.0-11.0) Red Blood Count 5.19 x10^6/uL (4.30-5.70) Hemoglobin 15.8 g/dL (13.0-17.5) Hematocrit 45.3 % (39.0-53.0) Mean Corpuscular Volume 87 fL (79-100) Mean Corpuscular Hemoglobin 30 pg (25-35) Mean Corpuscular Hemoglobin Concent 35 g/dL (31-37) Red Cell Distribution Width 13.5 % (11.5-14.5) Platelet Count 237 x10^3/uL (140-400) Neutrophils (%) (Auto) 71 % (31-73) Lymphocytes (%) (Auto) 21 % (24-48) Monocytes (%) (Auto) 7 % (0-9) Eosinophils (%) (Auto) 1 % (0-3) Basophils (%) (Auto) 1 % (0-3) Neutrophils # (Auto) 7.1 x10^3/uL (1.8-7.7) Lymphocytes # (Auto) 2.1 x10^3/uL (1.0-4.8) Monocytes # (Auto) 0.7 x10^3/uL (0.0-1.1) Eosinophils # (Auto) 0.1 x10^3/uL (0.0-0.7) Basophils # (Auto) 0.1 x10^3/uL (0.0-0.2) Sodium Level 133 mmol/L (136-145) Potassium Level 4.0 mmol/L (3.5-5.1) Chloride Level 101 mmol/L (98-107) Carbon Dioxide Level 22 mmol/L (21-32) Anion Gap 10 (6-14) Blood Urea Nitrogen 7 mg/dL (8-26) Creatinine 0.6 mg/dL (0.7-1.3) Estimated GFR (Cockcroft-Gault) 156.1 Glucose Level 231 mg/dL (70-99) Calcium Level 6.1 mg/dL (8.5-10.1) Phosphorus Level 2.5 mg/dL (2.6-4.7) Magnesium Level 1.8 mg/dL (1.8-2.4) Test 11/30/19 07:45 11/30/19 09:44 Glucose (Fingerstick) 164 mg/dL (70-99) Sodium Level 135 mmol/L (136-145) Potassium Level 3.8 mmol/L (3.5-5.1) Chloride Level 103 mmol/L (98-107) Carbon Dioxide Level 21 mmol/L (21-32) Anion Gap 11 (6-14) Blood Urea Nitrogen 6 mg/dL (8-26) Creatinine 0.7 mg/dL (0.7-1.3) Estimated GFR (Cockcroft-Gault) 130.7 Glucose Level 170 mg/dL (70-99) Calcium Level 6.3 mg/dL (8.5-10.1) Phosphorus Level 2.3 mg/dL (2.6-4.7) Magnesium Level 1.8 mg/dL (1.8-2.4) Review of Systems Review of Systems 10 point review of system is negative Assessment and Plan Assessmemt and Plan Problems Medical Problems: (1) Chest pain Status: Acute (2) DKA (diabetic ketoacidoses) Status: Acute (3) Hypertriglyceridemia Status: Acute (4) Pancreatitis Status: Acute Comment Review of Relevant I have reviewed the following items justino (where applicable) has been applied. Labs Laboratory Tests Test 11/29/19 14:58 11/29/19 15:28 11/29/19 18:30 11/29/19 18:35 Sodium Level 130 mmol/L (136-145) Potassium Level 5.1 mmol/L (3.5-5.1) Chloride Level 93 mmol/L (98-107) Carbon Dioxide Level 18 mmol/L (21-32) Anion Gap 19 (6-14) Blood Urea Nitrogen 13 mg/dL (8-26) Creatinine 0.7 mg/dL (0.7-1.3) Estimated GFR (Cockcroft-Gault) 130.7 BUN/Creatinine Ratio 19 (6-20) Glucose Level 440 mg/dL (70-99) Calcium Level 9.4 mg/dL (8.5-10.1) Total Bilirubin 1.0 mg/dL (0.2-1.0) Aspartate Amino Transf (AST/SGOT) 32 U/L (15-37) Alanine Aminotransferase (ALT/SGPT) 48 U/L (16-63) Alkaline Phosphatase 142 U/L (46-116) Troponin I Quantitative < 0.017 ng/mL (0.000-0.055) < 0.017 ng/mL (0.000-0.055) Total Protein 7.7 g/dL (6.4-8.2) Albumin 4.0 g/dL (3.4-5.0) Albumin/Globulin Ratio 1.1 (1.0-1.7) Triglycerides Level 3702 mg/dL (0-150) Lipase 8452 U/L (73-393) White Blood Count 16.6 x10^3/uL (4.0-11.0) Red Blood Count 5.29 x10^6/uL (4.30-5.70) Hemoglobin 14.1 g/dL (13.0-17.5) Hematocrit 46.5 % (39.0-53.0) Mean Corpuscular Volume 88 fL (79-100) Mean Corpuscular Hemoglobin 27 pg (25-35) Mean Corpuscular Hemoglobin Concent 30 g/dL (31-37) Red Cell Distribution Width 13.6 % (11.5-14.5) Platelet Count 273 x10^3/uL (140-400) Neutrophils (%) (Auto) 76 % (31-73) Lymphocytes (%) (Auto) 16 % (24-48) Monocytes (%) (Auto) 7 % (0-9) Eosinophils (%) (Auto) 1 % (0-3) Basophils (%) (Auto) 1 % (0-3) Neutrophils # (Auto) 12.6 x10^3/uL (1.8-7.7) Lymphocytes # (Auto) 2.6 x10^3/uL (1.0-4.8) Monocytes # (Auto) 1.1 x10^3/uL (0.0-1.1) Eosinophils # (Auto) 0.2 x10^3/uL (0.0-0.7) Basophils # (Auto) 0.1 x10^3/uL (0.0-0.2) Segmented Neutrophils % 76 % (35-66) Band Neutrophils % 6 % (0-9) Lymphocytes % 15 % (24-48) Monocytes % 3 % (0-10) Toxic Granulation Slight Toxic Vacuolation Slight Platelet Estimate Adequate (ADEQUATE) Magnesium Level 1.9 mg/dL (1.8-2.4) Glucose (Fingerstick) 311 mg/dL (70-99) Test 11/29/19 19:28 11/29/19 19:51 11/29/19 19:58 11/29/19 20:55 Sodium Level 133 mmol/L (136-145) Potassium Level 4.7 mmol/L (3.5-5.1) Chloride Level 97 mmol/L (98-107) Carbon Dioxide Level 16 mmol/L (21-32) Anion Gap 20 (6-14) Blood Urea Nitrogen 11 mg/dL (8-26) Creatinine 0.5 mg/dL (0.7-1.3) Estimated GFR (Cockcroft-Gault) 192.7 Glucose Level 284 mg/dL (70-99) Calcium Level 8.0 mg/dL (8.5-10.1) Phosphorus Level 4.3 mg/dL (2.6-4.7) Magnesium Level 2.0 mg/dL (1.8-2.4) Glucose (Fingerstick) 277 mg/dL (70-99) 270 mg/dL (70-99) Troponin I Quantitative < 0.017 ng/mL (0.000-0.055) Test 11/29/19 21:58 11/29/19 23:02 11/29/19 23:51 11/29/19 23:57 Glucose (Fingerstick) 252 mg/dL (70-99) 241 mg/dL (70-99) 265 mg/dL (70-99) Sodium Level 133 mmol/L (136-145) Potassium Level 5.0 mmol/L (3.5-5.1) Chloride Level 99 mmol/L (98-107) Carbon Dioxide Level 18 mmol/L (21-32) Anion Gap 16 (6-14) Blood Urea Nitrogen 11 mg/dL (8-26) Creatinine 0.5 mg/dL (0.7-1.3) Estimated GFR (Cockcroft-Gault) 192.7 Glucose Level 271 mg/dL (70-99) Calcium Level 7.3 mg/dL (8.5-10.1) Phosphorus Level 3.8 mg/dL (2.6-4.7) Magnesium Level 2.0 mg/dL (1.8-2.4) Test 11/30/19 00:52 11/30/19 01:52 11/30/19 02:55 11/30/19 03:53 Glucose (Fingerstick) 258 mg/dL (70-99) 263 mg/dL (70-99) 261 mg/dL (70-99) 212 mg/dL (70-99) Test 11/30/19 04:51 11/30/19 05:15 11/30/19 05:51 11/30/19 06:36 Glucose (Fingerstick) 224 mg/dL (70-99) 207 mg/dL (70-99) 201 mg/dL (70-99) White Blood Count 10.1 x10^3/uL (4.0-11.0) Red Blood Count 5.19 x10^6/uL (4.30-5.70) Hemoglobin 15.8 g/dL (13.0-17.5) Hematocrit 45.3 % (39.0-53.0) Mean Corpuscular Volume 87 fL (79-100) Mean Corpuscular Hemoglobin 30 pg (25-35) Mean Corpuscular Hemoglobin Concent 35 g/dL (31-37) Red Cell Distribution Width 13.5 % (11.5-14.5) Platelet Count 237 x10^3/uL (140-400) Neutrophils (%) (Auto) 71 % (31-73) Lymphocytes (%) (Auto) 21 % (24-48) Monocytes (%) (Auto) 7 % (0-9) Eosinophils (%) (Auto) 1 % (0-3) Basophils (%) (Auto) 1 % (0-3) Neutrophils # (Auto) 7.1 x10^3/uL (1.8-7.7) Lymphocytes # (Auto) 2.1 x10^3/uL (1.0-4.8) Monocytes # (Auto) 0.7 x10^3/uL (0.0-1.1) Eosinophils # (Auto) 0.1 x10^3/uL (0.0-0.7) Basophils # (Auto) 0.1 x10^3/uL (0.0-0.2) Sodium Level 133 mmol/L (136-145) Potassium Level 4.0 mmol/L (3.5-5.1) Chloride Level 101 mmol/L (98-107) Carbon Dioxide Level 22 mmol/L (21-32) Anion Gap 10 (6-14) Blood Urea Nitrogen 7 mg/dL (8-26) Creatinine 0.6 mg/dL (0.7-1.3) Estimated GFR (Cockcroft-Gault) 156.1 Glucose Level 231 mg/dL (70-99) Calcium Level 6.1 mg/dL (8.5-10.1) Phosphorus Level 2.5 mg/dL (2.6-4.7) Magnesium Level 1.8 mg/dL (1.8-2.4) Test 11/30/19 07:45 11/30/19 09:44 Glucose (Fingerstick) 164 mg/dL (70-99) Sodium Level 135 mmol/L (136-145) Potassium Level 3.8 mmol/L (3.5-5.1) Chloride Level 103 mmol/L (98-107) Carbon Dioxide Level 21 mmol/L (21-32) Anion Gap 11 (6-14) Blood Urea Nitrogen 6 mg/dL (8-26) Creatinine 0.7 mg/dL (0.7-1.3) Estimated GFR (Cockcroft-Gault) 130.7 Glucose Level 170 mg/dL (70-99) Calcium Level 6.3 mg/dL (8.5-10.1) Phosphorus Level 2.3 mg/dL (2.6-4.7) Magnesium Level 1.8 mg/dL (1.8-2.4) Laboratory Tests Test 11/29/19 14:58 11/29/19 15:28 11/29/19 18:30 11/29/19 18:35 Sodium Level 130 mmol/L (136-145) Potassium Level 5.1 mmol/L (3.5-5.1) Chloride Level 93 mmol/L (98-107) Carbon Dioxide Level 18 mmol/L (21-32) Anion Gap 19 (6-14) Blood Urea Nitrogen 13 mg/dL (8-26) Creatinine 0.7 mg/dL (0.7-1.3) Estimated GFR (Cockcroft-Gault) 130.7 BUN/Creatinine Ratio 19 (6-20) Glucose Level 440 mg/dL (70-99) Calcium Level 9.4 mg/dL (8.5-10.1) Total Bilirubin 1.0 mg/dL (0.2-1.0) Aspartate Amino Transf (AST/SGOT) 32 U/L (15-37) Alanine Aminotransferase (ALT/SGPT) 48 U/L (16-63) Alkaline Phosphatase 142 U/L (46-116) Troponin I Quantitative < 0.017 ng/mL (0.000-0.055) < 0.017 ng/mL (0.000-0.055) Total Protein 7.7 g/dL (6.4-8.2) Albumin 4.0 g/dL (3.4-5.0) Albumin/Globulin Ratio 1.1 (1.0-1.7) Triglycerides Level 3702 mg/dL (0-150) Lipase 8452 U/L (73-393) White Blood Count 16.6 x10^3/uL (4.0-11.0) Red Blood Count 5.29 x10^6/uL (4.30-5.70) Hemoglobin 14.1 g/dL (13.0-17.5) Hematocrit 46.5 % (39.0-53.0) Mean Corpuscular Volume 88 fL (79-100) Mean Corpuscular Hemoglobin 27 pg (25-35) Mean Corpuscular Hemoglobin Concent 30 g/dL (31-37) Red Cell Distribution Width 13.6 % (11.5-14.5) Platelet Count 273 x10^3/uL (140-400) Neutrophils (%) (Auto) 76 % (31-73) Lymphocytes (%) (Auto) 16 % (24-48) Monocytes (%) (Auto) 7 % (0-9) Eosinophils (%) (Auto) 1 % (0-3) Basophils (%) (Auto) 1 % (0-3) Neutrophils # (Auto) 12.6 x10^3/uL (1.8-7.7) Lymphocytes # (Auto) 2.6 x10^3/uL (1.0-4.8) Monocytes # (Auto) 1.1 x10^3/uL (0.0-1.1) Eosinophils # (Auto) 0.2 x10^3/uL (0.0-0.7) Basophils # (Auto) 0.1 x10^3/uL (0.0-0.2) Segmented Neutrophils % 76 % (35-66) Band Neutrophils % 6 % (0-9) Lymphocytes % 15 % (24-48) Monocytes % 3 % (0-10) Toxic Granulation Slight Toxic Vacuolation Slight Platelet Estimate Adequate (ADEQUATE) Magnesium Level 1.9 mg/dL (1.8-2.4) Glucose (Fingerstick) 311 mg/dL (70-99) Test 11/29/19 19:28 11/29/19 19:51 11/29/19 19:58 11/29/19 20:55 Sodium Level 133 mmol/L (136-145) Potassium Level 4.7 mmol/L (3.5-5.1) Chloride Level 97 mmol/L (98-107) Carbon Dioxide Level 16 mmol/L (21-32) Anion Gap 20 (6-14) Blood Urea Nitrogen 11 mg/dL (8-26) Creatinine 0.5 mg/dL (0.7-1.3) Estimated GFR (Cockcroft-Gault) 192.7 Glucose Level 284 mg/dL (70-99) Calcium Level 8.0 mg/dL (8.5-10.1) Phosphorus Level 4.3 mg/dL (2.6-4.7) Magnesium Level 2.0 mg/dL (1.8-2.4) Glucose (Fingerstick) 277 mg/dL (70-99) 270 mg/dL (70-99) Troponin I Quantitative < 0.017 ng/mL (0.000-0.055) Test 11/29/19 21:58 11/29/19 23:02 11/29/19 23:51 11/29/19 23:57 Glucose (Fingerstick) 252 mg/dL (70-99) 241 mg/dL (70-99) 265 mg/dL (70-99) Sodium Level 133 mmol/L (136-145) Potassium Level 5.0 mmol/L (3.5-5.1) Chloride Level 99 mmol/L (98-107) Carbon Dioxide Level 18 mmol/L (21-32) Anion Gap 16 (6-14) Blood Urea Nitrogen 11 mg/dL (8-26) Creatinine 0.5 mg/dL (0.7-1.3) Estimated GFR (Cockcroft-Gault) 192.7 Glucose Level 271 mg/dL (70-99) Calcium Level 7.3 mg/dL (8.5-10.1) Phosphorus Level 3.8 mg/dL (2.6-4.7) Magnesium Level 2.0 mg/dL (1.8-2.4) Test 11/30/19 00:52 11/30/19 01:52 11/30/19 02:55 11/30/19 03:53 Glucose (Fingerstick) 258 mg/dL (70-99) 263 mg/dL (70-99) 261 mg/dL (70-99) 212 mg/dL (70-99) Test 11/30/19 04:51 11/30/19 05:15 11/30/19 05:51 11/30/19 06:36 Glucose (Fingerstick) 224 mg/dL (70-99) 207 mg/dL (70-99) 201 mg/dL (70-99) White Blood Count 10.1 x10^3/uL (4.0-11.0) Red Blood Count 5.19 x10^6/uL (4.30-5.70) Hemoglobin 15.8 g/dL (13.0-17.5) Hematocrit 45.3 % (39.0-53.0) Mean Corpuscular Volume 87 fL (79-100) Mean Corpuscular Hemoglobin 30 pg (25-35) Mean Corpuscular Hemoglobin Concent 35 g/dL (31-37) Red Cell Distribution Width 13.5 % (11.5-14.5) Platelet Count 237 x10^3/uL (140-400) Neutrophils (%) (Auto) 71 % (31-73) Lymphocytes (%) (Auto) 21 % (24-48) Monocytes (%) (Auto) 7 % (0-9) Eosinophils (%) (Auto) 1 % (0-3) Basophils (%) (Auto) 1 % (0-3) Neutrophils # (Auto) 7.1 x10^3/uL (1.8-7.7) Lymphocytes # (Auto) 2.1 x10^3/uL (1.0-4.8) Monocytes # (Auto) 0.7 x10^3/uL (0.0-1.1) Eosinophils # (Auto) 0.1 x10^3/uL (0.0-0.7) Basophils # (Auto) 0.1 x10^3/uL (0.0-0.2) Sodium Level 133 mmol/L (136-145) Potassium Level 4.0 mmol/L (3.5-5.1) Chloride Level 101 mmol/L (98-107) Carbon Dioxide Level 22 mmol/L (21-32) Anion Gap 10 (6-14) Blood Urea Nitrogen 7 mg/dL (8-26) Creatinine 0.6 mg/dL (0.7-1.3) Estimated GFR (Cockcroft-Gault) 156.1 Glucose Level 231 mg/dL (70-99) Calcium Level 6.1 mg/dL (8.5-10.1) Phosphorus Level 2.5 mg/dL (2.6-4.7) Magnesium Level 1.8 mg/dL (1.8-2.4) Test 11/30/19 07:45 11/30/19 09:44 Glucose (Fingerstick) 164 mg/dL (70-99) Sodium Level 135 mmol/L (136-145) Potassium Level 3.8 mmol/L (3.5-5.1) Chloride Level 103 mmol/L (98-107) Carbon Dioxide Level 21 mmol/L (21-32) Anion Gap 11 (6-14) Blood Urea Nitrogen 6 mg/dL (8-26) Creatinine 0.7 mg/dL (0.7-1.3) Estimated GFR (Cockcroft-Gault) 130.7 Glucose Level 170 mg/dL (70-99) Calcium Level 6.3 mg/dL (8.5-10.1) Phosphorus Level 2.3 mg/dL (2.6-4.7) Magnesium Level 1.8 mg/dL (1.8-2.4) Medications Current Medications Morphine Sulfate (Morphine Sulfate) 4 mg 1X ONCE IV Last administered on 11/29/19at 15:01; Start 11/29/19 at 14:45; Stop 11/29/19 at 14:46; Status DC Ondansetron HCl (Zofran) 4 mg 1X ONCE IVP Last administered on 11/29/19at 15:00; Start 11/29/19 at 14:45; Stop 11/29/19 at 14:46; Status DC Hydromorphone HCl (Dilaudid) 1 mg 1X ONCE IVP Last administered on 11/29/19at 16:15; Start 11/29/19 at 16:00; Stop 11/29/19 at 16:02; Status DC Sodium Chloride 1,000 ml @ 1,000 mls/hr 1X ONCE IV Last administered on 11/29/19at 16:25; Start 11/29/19 at 16:30; Stop 11/29/19 at 17:29; Status DC Sodium Chloride 1,000 ml @ 1,000 mls/hr 1X ONCE IV Last administered on 11/29/19at 16:26; Start 11/29/19 at 16:30; Stop 11/29/19 at 17:29; Status DC Insulin Human Regular 100 unit/ Sodium Chloride 101 ml @ 0 mls/hr CONT PRN IV SEE I/O RECORD; Start 11/29/19 at 16:15; Status Cancel Ondansetron HCl (Zofran) 4 mg PRN Q8HRS PRN IV NAUSEA/VOMITING; Start 11/29/19 at 16:45; Stop 11/30/19 at 16:44 Morphine Sulfate (Morphine Sulfate) 4 mg PRN Q2HR PRN IV PAIN Last administered on 11/29/19at 20:54; Start 11/29/19 at 16:45; Stop 11/30/19 at 16:44 Acetaminophen (Tylenol) 650 mg PRN Q6HRS PRN PO Headaches, Temp > 101.5'; Start 11/29/19 at 16:30 Lorazepam (Ativan) 1 mg PRN Q6HRS PRN PO ANXIETY / AGITATION; Start 11/29/19 at 16:30 Ondansetron HCl (Zofran) 4 mg PRN Q6HRS PRN IVP NAUSEA/VOMITING; Start 11/29/19 at 16:30 Info ([facility] Electrolyte Protocol) 1 ea DAILY MC ; Start 11/30/19 at 09:00 Enoxaparin Sodium (Lovenox 40mg Syringe) 40 mg Q24H SQ Last administered on 11/29/19at 19:34; Start 11/29/19 at 17:00 Sodium Chloride (Normal Saline Flush) 3 ml QSHIFT PRN IV AFTER MEDS AND BLOOD DRAWS; Start 11/29/19 at 16:30 Acetaminophen/ Hydrocodone Bitart (Lortab 5/325) 1 tab PRN Q4HRS PRN PO MILD PAIN, 2ND CHOICE Last administered on 11/29/19at 21:12; Start 11/29/19 at 16:30 Morphine Sulfate (Morphine Sulfate) 2 mg PRN Q1HR PRN IV PAIN; Start 11/29/19 at 16:30 Senna/Docusate Sodium (Senna Plus) 1 tab BID PO Last administered on 11/29/19at 20:58; Start 11/29/19 at 21:00 Sodium Chloride 1,000 ml @ 1,000 mls/hr Q1H IV ; Start 11/29/19 at 16:30; Stop 11/29/19 at 17:29; Status DC Sodium Chloride 1,000 ml @ 500 mls/hr Q2H IV ; Start 11/29/19 at 16:31; Stop 11/29/19 at 18:30; Status DC Sodium Chloride 1,000 ml @ 250 mls/hr Q4H IV ; Start 11/29/19 at 16:33; Stop 11/29/19 at 19:25; Status DC Sodium Chloride 1,000 ml @ 250 mls/hr Q4H IV ; Start 11/29/19 at 16:33; Stop 11/29/19 at 19:25; Status DC Dextrose/Sodium Chloride 1,000 ml @ 250 mls/hr Q4H IV ; Start 11/29/19 at 16:33; Stop 11/29/19 at 19:25; Status DC Insulin Human Regular 100 unit/ Sodium Chloride 101 ml @ 0 mls/hr CONT PRN PRN IV DKA Last administered on 11/30/19at 02:49; Start 11/29/19 at 16:30 Potassium Chloride/Water 100 ml @ 100 mls/hr PRN Q1HR PRN IV HYPOKALEMIA; Start 11/29/19 at 16:30 Fentanyl Citrate (Fentanyl 2ml Vial) 25 mcg PRN Q3HRS PRN IVP PAIN Last administered on 11/29/19at 22:19; Start 11/29/19 at 19:30 Sodium Chloride 1,000 ml @ 250 mls/hr Q4H IV Last administered on 11/29/19 19:34; Start 11/29/19 at 19:30; Stop 11/29/19 at 23:05; Status DC Potassium Chloride/Water 100 ml @ 100 mls/hr Q1HR IV Last administered on 11/29/19at 22:12; Start 11/29/19 at 21:00; Stop 11/29/19 at 22:59; Status DC Enalaprilat (Vasotec Inj) 1.25 mg PRN Q6HRS PRN IVP HYPERTENSION Last administered on 11/29/19at 22:19; Start 11/29/19 at 22:00 Morphine Sulfate (Morphine Sulfate) 8 mg PRN Q2HR PRN IV PAIN Last administered on 11/30/19 09:28; Start 11/29/19 at 23:00 Dextrose/Sodium Chloride 1,000 ml @ 250 mls/hr Q4H IV Last administered on 11/30/19at 08:06; Start 11/29/19 at 23:15 Potassium Chloride/Water 100 ml @ 100 mls/hr Q1H IV Last administered on 11/30/19at 02:10; Start 11/30/19 at 01:00; Stop 11/30/19 at 02:59; Status DC Sodium Chloride 1,000 ml @ 250 mls/hr Q4H IV Last administered on 11/30/19at 02:59; Start 11/30/19 at 03:00 Potassium Chloride/Water 100 ml @ 100 mls/hr Q1H IV Last administered on 11/30/19at 07:48; Start 11/30/19 at 06:30; Stop 11/30/19 at 08:29; Status DC Insulin Glargine (Lantus Syringe) 25 unit DAILY SQ Last administered on 11/30/19 08:29; Start 11/30/19 at 09:00 Insulin Human Lispro (HumaLOG) 8 units TIDWMEALS SQ Last administered on 11/30/19 08:28; Start 11/30/19 at 08:00 Vitals/I & O Vital Sign - Last 24 Hours 11/29/19 11/29/19 11/29/19 11/29/19 14:20 14:26 14:56 15:01 Temp 98.0 98.0 Pulse 79 77 79 Resp 18 16 B/P (MAP) 159/101 (120) 159/101 (120) 154/87 (109) Pulse Ox 99 100 96 96 O2 Delivery Room Air Room Air Room Air Room Air 11/29/19 11/29/19 11/29/19 11/29/19 15:26 15:56 16:02 16:15 Pulse 84 77 75 Resp 20 B/P (MAP) 158/96 (116) 169/108 (128) 169/105 (126) Pulse Ox 96 98 97 99 O2 Delivery Room Air Room Air Room Air Room Air 11/29/19 11/29/19 11/29/19 11/29/19 16:26 16:50 16:56 18:17 Pulse 80 87 Resp 16 24 B/P (MAP) 157/90 (112) 169/101 (123) Pulse Ox 96 99 98 99 O2 Delivery Room Air Room Air Room Air 11/29/19 11/29/19 11/29/19 11/29/19 19:00 20:00 20:00 21:00 Temp 98.7 98.7 Pulse 76 78 81 Resp 30 27 B/P (MAP) 180/88 (118) 173/94 (120) 160/90 (113) Pulse Ox 96 95 96 O2 Delivery Room Air Room Air Room Air Room Air 11/29/19 11/29/19 11/29/19 11/30/19 22:00 22:19 23:00 00:00 Temp 99.5 99.5 Pulse 83 84 90 89 Resp 29 B/P (MAP) 180/86 (117) 177/96 154/69 (97) 158/77 (104) Pulse Ox 97 94 95 O2 Delivery Room Air Room Air Room Air 11/30/19 11/30/19 11/30/19 11/30/19 00:00 01:00 02:00 03:00 Pulse 83 85 89 Resp 25 B/P (MAP) 140/66 (90) 131/61 (84) 156/70 (98) Pulse Ox 95 95 93 O2 Delivery Room Air Room Air Room Air Room Air 11/30/19 11/30/19 11/30/19 11/30/19 04:00 04:00 05:00 06:00 Temp 98.6 98.6 Pulse 88 90 96 Resp 18 21 B/P (MAP) 114/49 (70) 140/55 (83) 149/59 (89) Pulse Ox 94 96 94 O2 Delivery Room Air Room Air Room Air Room Air 11/30/19 11/30/19 11/30/19 11/30/19 07:00 08:00 08:00 09:00 Temp 98.1 98.1 Pulse 91 94 92 Resp 12 12 14 B/P (MAP) 134/59 (84) 143/68 (93) 136/86 (103) Pulse Ox 98 93 92 O2 Delivery Room Air Room Air Room Air Room Air 11/30/19 10:00 Pulse 87 Resp 14 B/P (MAP) 136/75 (95) Pulse Ox 92 O2 Delivery Room Air Intake and Output 11/29/19 11/29/19 11/30/19 15:00 23:00 07:00 Intake Total 2000 ml 2811 ml Output Total 475 ml 550 ml Balance 1525 ml 2261 ml Nutrition Consultation Dietary Evaluation: Recommendations by RD: Dietary education by RD, Increase Calorie Intake Comments: REC advance diet as able/appropriate (pt w/pancreatitis), goal diet ADA Provided pt w/handouts from Nutrition Care Manual on diabetes diet education and high TG diet education; RD available [phone] for additional diet questions as needed Expected Outcomes/Goals: diet advancement glycemic control diet education questions answered as able Interpretation of weight loss: >7.5% in 3 months Malnutrition Findings: Food and Nutrition Intake (Mod: <75% est energy req 7days Weight Status: Obese Justicifation of Admission Dx: Justifications for Admission: Justification of Admission Dx: Yes DEBORAH PONCE MD Nov 30, 2019 11:56
--- NOTE | 2019-11-30 14:45 | NUR ---
pg to Dr. Watson RE elevated glucose 278 w/ no insulin orders and orders for glucose checks every [address] orders to change CBG checks to q6, give his 1700 insulin at 1600, and change lantus to 15 bid.
[2019-11-30] MEDS: ENOXAPARIN 40 MG/0.4 ML SYRINGE. SQ SCH (17:45)
[2019-11-30] MEDS: INSULIN GLARGINE SYRINGE. SQ SCH (21:17)
[2019-12-01] MEDS: MORPHINE SULFATE 4 MG/ML VIAL. IV PRN ×8 (00:08→21:04)
[2019-12-01] MEDS: IV DEXTROSE 5% - 0.9 % NACL 1,000 ML IV SCH ×7 (00:10→21:09)
[2019-12-01 02:08] LABS: HEMOGLOBIN A1C 12.1 % (4.8-5.6)
[2019-12-01] MEDS: IV NORMAL SALINE 1000ML BAG 1,000 ML IV SCH ×4 (02:29→15:00)
[2019-12-01 03:00] VITALS: BP 136/81
[2019-12-01] MEDS: INSULIN LISPRO 300 UNITS/3 ML VIAL. SQ SCH ×3 (06:34→18:14)
[2019-12-01 07:34] VITALS: BP 129/70
[2019-12-01] MEDS: SENNOSIDES/DOCUSATE 8.6/50MG TABLET. PO SCH ×2 (09:00→21:03)
[2019-12-01] MEDS: ELECTROLYTE (ICU) PROTOCOL. MC SCH (09:00)
[2019-12-01 11:00] VITALS: BP 120/63
[2019-12-01] MEDS: INSULIN GLARGINE SYRINGE. SQ SCH ×2 (11:18→21:20)
--- NOTE | 2019-12-01 13:55 | PDOC ---
[facility] PROGRESS NOTE Date of Service DOS: DATE: 12/01/19 TIME: 13:52 Chief Complaint Chief Complaint Diabetic ketoacidosis New diagnosis of diabetes, hba1c pending High anion gap metabolic acidosis Pancreatitis secondary to hypertriglyceridemia Obesity with a BMI of 35 Severe dehydration Pseudohyponatremia Plan Continue n.p.o. with sips and chips advance diet as tolerated Continue pain control Continue IV fluids Serial abdominal exams follow hba1c lantus and lispro Lovenox for DVT prophylaxis N.p.o. Full code Discussed with RN and BEENA Dispo inpatient Surrogate decision maker is self History of Present Illness History of Present Illness 12/01/2019 No acute events overnight. Patient endorses some nausea no vomiting. Tolerating sips and chips. Epigastric abdominal pain has improved pain has now radiated towards the right lower quadrant. Patient's chart, labs, images were reviewed and discussed with RN Vitals/I&O Vitals/I&O: Vital Signs Date Time Temp Pulse Resp B/P (MAP) Pulse Ox O2 Delivery O2 Flow Rate FiO2 12/01/19 11:00 99.3 89 16 120/63 (82) 94 Room Air 99.3 I & O 0 11/30/19 11/30/19 12/01/19 15:00 23:00 07:00 Intake Total 200 ml Output Total 450 ml 0 ml Balance -250 ml 0 ml Physical Exam Physical Exam: GEN: No apparent distress. Alert and oriented HEENT: Normal cephalic, atraumatic, external auditory canals are patent NECK: Supple, no JVD, no thyromegaly was noted LUNGS: Bilateral crackles HEART: RRR, S1, S2 present. Peripheral pulses intact, no obvious murmurs noted ABDOMEN: Soft, tender in the epigastric region. Positive bowel sounds, no organomegaly, normal bowel sounds EXTREMITIES: Without clubbing, cyanosis, or edema. Pedal pulses intact. Negative Homans sign Labs Labs: Laboratory Tests Test 11/30/19 14:03 11/30/19 20:30 12/01/19 06:01 12/01/19 11:46 Glucose (Fingerstick) 278 mg/dL (70-99) 255 mg/dL (70-99) 276 mg/dL (70-99) 265 mg/dL (70-99) Assessment and Plan Assessmemt and Plan Problems Medical Problems: (1) Chest pain Status: Acute (2) DKA (diabetic ketoacidoses) Status: Acute (3) Hypertriglyceridemia Status: Acute (4) Pancreatitis Status: Acute Comment Review of Relevant I have reviewed the following items justino (where applicable) has been applied. Medications: Current Medications Medications (Trade) Dose Ordered Sig/Cecelia Route PRN Reason Start Time Stop Time Status Last Admin Dose Admin Insulin Glargine (Lantus Syringe) 15 unit BID SQ 11/30/19 21:00 12/01/19 11:18 YOLA ALEXANDER MD Dec 01, 2019 13:55
[2019-12-01] MEDS: HYDROcodone/APAP 5/325MG 1 TAB TABLET PO PRN ×2 (14:16→19:37)
--- NOTE | 2019-12-01 15:29 | NUR ---
SW following. Spoke with RN and reviewed chart. Pt from home on room air. No PT/OT needs per RN. Pt on IV Morphine. SW will follow as needed but there are no anticipated SW needs at discharge.
[2019-12-01 15:41] VITALS: BP 133/68
[2019-12-01] MEDS: ENOXAPARIN 40 MG/0.4 ML SYRINGE. SQ SCH (17:00)
[2019-12-01 19:00] VITALS: BP 157/88
[2019-12-01 23:00] VITALS: BP 121/69
[2019-12-02] MEDS: IV DEXTROSE 5% - 0.9 % NACL 1,000 ML IV SCH ×3 (01:17→11:15)
[2019-12-02] MEDS: MORPHINE SULFATE 4 MG/ML VIAL. IV PRN ×9 (01:17→23:38)
[2019-12-02 03:00] VITALS: BP 126/74
[2019-12-02] MEDS: HYDROcodone/APAP 5/325MG 1 TAB TABLET PO PRN (04:09)
[2019-12-02 07:15] VITALS: BP 115/50
[2019-12-02] MEDS ORDERED: DEXTROSE 50% 25 GM / 50ML DISP.SYRIN. IV PRN (07:45)
[2019-12-02] MEDS: SENNOSIDES/DOCUSATE 8.6/50MG TABLET. PO SCH ×2 (08:29→21:00)
[2019-12-02] MEDS: INSULIN LISPRO 300 UNITS/3 ML VIAL. SQ SCH ×6 (08:42→17:08)
[2019-12-02 08:52] LABS: CALCIUM 7.2 mg/dL (8.5-10.1); CREATININE 0.6 mg/dL (0.7-1.3); GFR 156.1; MAGNESIUM 1.9 mg/dL (1.8-2.4); POTASSIUM 3.5 mmol/L (3.5-5.1)
[2019-12-02] MEDS: ELECTROLYTE (ICU) PROTOCOL. MC SCH (09:00)
[2019-12-02 09:07] LABS: BASO % 0 % (0-3); EOS # 0.1 x10^3/uL (0.0-0.7); EOS % 2 % (0-3); HEMATOCRIT 37.5 % (39.0-53.0); HEMOGLOBIN 12.8 g/dL (13.0-17.5); LYMPH % 24 % (24-48); MEAN CORPUSCULAR HEMOGLOBIN 31 pg (25-35); MEAN CORPUSCULAR HGB CONC 34 g/dL (31-37); MEAN CORPUSCULAR VOLUME 89 fL (79-100); MONO # 0.8 x10^3/uL (0.0-1.1); MONO % 10 % (0-9); NEUT # 5.5 x10^3/uL (1.8-7.7); NEUT % 64 % (31-73); PLATELET COUNT 185 x10^3/uL (140-400); RED CELL DISTRIBUTION WIDTH 13.6 % (11.5-14.5); WHITE BLOOD COUNT 8.5 x10^3/uL (4.0-11.0)
[2019-12-02] MEDS: IV RINGERS,LACTATED 1000ML 1,000 ML IV SCH ×3 (10:17→21:33)
[2019-12-02] MEDS: INSULIN GLARGINE SYRINGE. SQ SCH ×2 (10:29→21:32)
[2019-12-02 11:15] VITALS: BP 124/70
--- NOTE | 2019-12-02 11:55 | PDOC ---
[facility] PROGRESS NOTE Date of Service DOS: DATE: 12/02/19 TIME: 11:52 Chief Complaint Chief Complaint Diabetic ketoacidosis New diagnosis of diabetes, hba1c pending High anion gap metabolic acidosis Pancreatitis secondary to hypertriglyceridemia Obesity with a BMI of 35 Severe dehydration Pseudohyponatremia Plan IV potassium phosphate Continue clear liquid diet Continue pain control Continue IV fluids Serial abdominal exams follow hba1c lantus and lispro Lovenox for DVT prophylaxis N.p.o. Full code Discussed with RN and BEENA Dispo inpatient Surrogate decision maker is self History of Present Illness History of Present Illness 12/01/2019 No acute events overnight. Patient endorses some nausea no vomiting. Tolerating sips and chips. Epigastric abdominal pain has improved pain has now radiated towards the right lower quadrant. Patient's chart, labs, images were reviewed and discussed with RN 12/02/2019 No acute events overnight. Patient continues to have epigastric abdominal pain. Tolerating clear liquid diet. Patient's chart, labs, images were reviewed and discussed with RN Vitals/I&O Vitals/I&O: Vital Signs Date Time Temp Pulse Resp B/P (MAP) Pulse Ox O2 Delivery O2 Flow Rate FiO2 12/02/19 11:04 Room Air 12/02/19 07:15 98.7 70 20 115/50 (71) 96 98.7 I & O 12/01/19 12/01/19 12/02/19 15:00 23:00 07:00 Intake Total 1450 ml 2500 ml Balance 1450 ml 2500 ml Physical Exam Physical Exam: GEN: No apparent distress. Alert and oriented HEENT: Normal cephalic, atraumatic, external auditory canals are patent NECK: Supple, no JVD, no thyromegaly was noted LUNGS: Bilateral crackles HEART: RRR, S1, S2 present. Peripheral pulses intact, no obvious murmurs noted ABDOMEN: Soft, tender in the epigastric region. Positive bowel sounds, no organomegaly, normal bowel sounds EXTREMITIES: Without clubbing, cyanosis, or edema. Pedal pulses intact. Negative Homans sign Labs Labs: Laboratory Tests Test 12/01/19 18:20 12/01/19 21:15 12/02/19 08:08 12/02/19 08:25 Glucose (Fingerstick) 274 mg/dL (70-99) 267 mg/dL (70-99) 249 mg/dL (70-99) White Blood Count 8.5 x10^3/uL (4.0-11.0) Red Blood Count 4.20 x10^6/uL (4.30-5.70) Hemoglobin 12.8 g/dL (13.0-17.5) Hematocrit 37.5 % (39.0-53.0) Mean Corpuscular Volume 89 fL (79-100) Mean Corpuscular Hemoglobin 31 pg (25-35) Mean Corpuscular Hemoglobin Concent 34 g/dL (31-37) Red Cell Distribution Width 13.6 % (11.5-14.5) Platelet Count 185 x10^3/uL (140-400) Neutrophils (%) (Auto) 64 % (31-73) Lymphocytes (%) (Auto) 24 % (24-48) Monocytes (%) (Auto) 10 % (0-9) Eosinophils (%) (Auto) 2 % (0-3) Basophils (%) (Auto) 0 % (0-3) Neutrophils # (Auto) 5.5 x10^3/uL (1.8-7.7) Lymphocytes # (Auto) 2.0 x10^3/uL (1.0-4.8) Monocytes # (Auto) 0.8 x10^3/uL (0.0-1.1) Eosinophils # (Auto) 0.1 x10^3/uL (0.0-0.7) Basophils # (Auto) 0.0 x10^3/uL (0.0-0.2) Sodium Level 138 mmol/L (136-145) Potassium Level 3.5 mmol/L (3.5-5.1) Chloride Level 102 mmol/L (98-107) Carbon Dioxide Level 26 mmol/L (21-32) Anion Gap 10 (6-14) Blood Urea Nitrogen 2 mg/dL (8-26) Creatinine 0.6 mg/dL (0.7-1.3) Estimated GFR (Cockcroft-Gault) 156.1 Glucose Level 249 mg/dL (70-99) Calcium Level 7.2 mg/dL (8.5-10.1) Phosphorus Level 2.0 mg/dL (2.6-4.7) Magnesium Level 1.9 mg/dL (1.8-2.4) Triglycerides Level 208 mg/dL (0-150) Test 12/02/19 11:22 Glucose (Fingerstick) 184 mg/dL (70-99) Assessment and Plan Assessmemt and Plan Problems Medical Problems: (1) Chest pain Status: Acute (2) DKA (diabetic ketoacidoses) Status: Acute (3) Hypertriglyceridemia Status: Acute (4) Pancreatitis Status: Acute Comment Review of Relevant I have reviewed the following items justino (where applicable) has been applied. Medications: Current Medications Medications (Trade) Dose Ordered Sig/Cecelia Route PRN Reason Start Time Stop Time Status Last Admin Dose Admin Insulin Human Lispro (HumaLOG) 0-7 UNITS TIDWMEALS SQ 12/02/19 08:00 12/02/19 08:42 Ringer's Solution 1,000 ml @ 150 mls/hr Q6H40M IV 12/02/19 09:00 12/02/19 10:17 YOLA ALEXANDER MD Dec 02, 2019 11:55
[2019-12-02] MEDS: POTASSIUM PHOS,M-BASIC-D-BASIC 10 MMOL in IV NORMAL SALINE 100ML 100 ML IV SCH ×2 (14:18→17:00)
[2019-12-02 15:15] VITALS: BP 129/66
[2019-12-02] MEDS: ENOXAPARIN 40 MG/0.4 ML SYRINGE. SQ SCH (17:00)
--- NOTE | 2019-12-02 17:33 | NUR ---
SW following. Spoke with RN and reviewed chart. Plan remains discharge home self-care. No anticipated SW needs.
[2019-12-02 19:00] VITALS: BP 135/83
[2019-12-02 23:00] VITALS: BP 131/65
[2019-12-03] MEDS: MORPHINE SULFATE 4 MG/ML VIAL. IV PRN ×4 (02:22→10:27)
[2019-12-03 03:00] VITALS: BP 136/64
[2019-12-03] MEDS: IV RINGERS,LACTATED 1000ML 1,000 ML IV SCH ×3 (05:35→20:44)
[2019-12-03 07:00] VITALS: BP 129/56
[2019-12-03] MEDS: SENNOSIDES/DOCUSATE 8.6/50MG TABLET. PO SCH ×2 (07:45→20:44)
[2019-12-03] MEDS: INSULIN LISPRO 300 UNITS/3 ML VIAL. SQ SCH ×6 (07:46→17:23)
[2019-12-03] MEDS: ELECTROLYTE (ICU) PROTOCOL. MC SCH (07:53)
--- NOTE | 2019-12-03 08:16 | RAD ---
Upper quadrant ultrasound 12/03/2019 INDICATION: Pain. COMPARISON STUDY: None. FINDINGS: Ultrasound was performed.. The liver is diffusely echogenic appearance, most commonly reflecting hepatic steatosis. The liver is enlarged measuring 21 cm longitudinally. Trace ascites appears to be present Right Upper Quadrant. The gallbladder wall is normal thickness. The bladder appears to be full of sludge. Definitive shadowing stone is seen. Minimal pericholecystic fluid is seen, which is nonspecific ascites. The right kidney measures 13 cm longitudinally. There is a hypoechoic mass in the mid right kidney measuring 1.6 cm in diameter. This is somewhat poorly visualized. The common bile duct is top normal in diameter and 6 mm. The pancreas is nonvisualized. Visualized aorta and IVC are unremarkable. Small right pleural effusion appears to be present. IMPRESSION: 1. Hepatomegaly, possible hepatic steatosis 2. Trace ascites 3. Sludge within the gallbladder lumen. Nonspecific pericholecystic fluid. No cholelithiasis or wall thickening is seen. No convincing evidence of cholecystitis is seen. 4. 1.6 cm hypoechoic, somewhat poorly defined mass in the mid right kidney. Recommend follow-up multiphase CT imaging Electronically signed by: Adama Pelayo MD (12/03/2019 8:13 AM) [id number]
[2019-12-03] MEDS: INSULIN GLARGINE SYRINGE. SQ SCH ×2 (10:32→20:49)
[2019-12-03 11:20] VITALS: BP 150/89
[2019-12-03] MEDS ORDERED: IOHEXOL 300 MG/ML 100ML VIAL. IV ONE (12:30)
[2019-12-03] MEDS: oxyCODONE/APAP 10/325 1 TAB TABLET PO PRN ×3 (12:30→20:44)
[2019-12-03] MEDS ORDERED: CONTRAST GIVEN. MC PRN (12:45)
[2019-12-03 14:57] VITALS: BP 134/85
--- NOTE | 2019-12-03 15:13 | RAD ---
CT scan scan of the abdomen without and with contrast 12/03/2019 CLINICAL HISTORY: Hypoechoic lesion seen involving the midpole of the right kidney on an ultrasound from earlier today. TECHNIQUE: Unenhanced, contiguous, 3 mm axial sections were obtained through the abdomen. After the intravenous administration of 75 cc of Omnipaque 350, contiguous, 3 mm axial sections were obtained through the abdomen. Imaging was performed using an arterial, venous and delayed phases. One or more of the following individualized dose reduction techniques were utilized for this study: 1. Automated exposure control. 2. Adjustment of the mA and/or kV according to patient size. 3. Use of iterative reconstruction technique. FINDINGS: Comparison is made to the patient's ultrasound of the abdomen performed earlier today. Images through the lung bases demonstrate a very small right pleural effusion. Right lower lobe atelectasis and/or infiltrate is noted. The unenhanced images through the abdomen demonstrate no renal or ureteral calculus. On the postcontrast images the liver is mildly enlarged measuring 24 cm in length. Decreased attenuation of the liver parenchyma is seen consistent with fatty infiltration. The spleen and adrenal glands are within normal limits. The head and proximal body of the pancreas are enlarged and heterogeneous. Increased density is seen within the fat surrounding the pancreas. These findings are consistent with acute pancreatitis. Phlegmon extends laterally to the right and inferiorly, anterior to the right kidney. No pancreatic pseudocyst is seen. No abnormality of either kidney is seen on any phase of contrast enhancement. The hypoechoic area seen on the patient's ultrasound is felt to have been artifactual. The abdominal aorta tapers normally. The gallbladder is slightly contracted. There is no evidence of bowel obstruction. Minimal S-shaped curvature of the thoracolumbar spine is seen. IMPRESSION: 1. No abnormality of either kidney is seen. The hypoechoic area seen on patient's renal ultrasound is felt to be artifactual. 2. Findings consistent with acute pancreatitis. No pancreatic pseudocyst is seen. Electronically signed by: Sahil Day MD (12/03/2019 3:10 PM) [id number]
--- NOTE | 2019-12-03 15:14 | PDOC ---
[facility] PROGRESS NOTE Date of Service DOS: DATE: 12/03/19 TIME: 15:12 Chief Complaint Chief Complaint Diabetic ketoacidosis improved New diagnosis of diabetes, hba1c 12.1 High anion gap metabolic acidosis Pancreatitis secondary to hypertriglyceridemia Obesity with a BMI of 35 Severe dehydration Dyslipidemia Plan Ultrasound showing renal cyst pending CT abdomen pelvis to evaluate further IV potassium phosphate Advance diet to soft Continue pain control Continue IV fluids Serial abdominal exams follow hba1c lantus and lispro Start atorvastatin Lovenox for DVT prophylaxis N.p.o. Full code Discussed with RN and BEENA Dispo inpatient Surrogate decision maker is self History of Present Illness History of Present Illness 12/01/2019 No acute events overnight. Patient endorses some nausea no vomiting. Tolerating sips and chips. Epigastric abdominal pain has improved pain has now radiated towards the right lower quadrant. Patient's chart, labs, images were reviewed and discussed with RN 12/02/2019 No acute events overnight. Patient continues to have epigastric abdominal pain. Tolerating clear liquid diet. Patient's chart, labs, images were reviewed and discussed with RN 12/03/2019 No acute events overnight. Patient continues to have constant abdominal pain. I will order an abdominal CT for further evaluation. Patient's chart, labs, images were reviewed and discussed with RN Vitals/I&O Vitals/I&O: Vital Signs Date Time Temp Pulse Resp B/P (MAP) Pulse Ox O2 Delivery O2 Flow Rate FiO2 12/03/19 14:57 98.1 70 22 134/85 (101) 95 Room Air 98.1 I & O 12/02/19 12/02/19 12/03/19 15:00 23:00 07:00 Intake Total 200 ml Balance 200 ml Physical Exam Physical Exam: GEN: No apparent distress. Alert and oriented HEENT: Normal cephalic, atraumatic, external auditory canals are patent NECK: Supple, no JVD, no thyromegaly was noted LUNGS: Bilateral crackles HEART: RRR, S1, S2 present. Peripheral pulses intact, no obvious murmurs noted ABDOMEN: Soft, tender in the epigastric region. Positive bowel sounds, no organomegaly, normal bowel sounds EXTREMITIES: Without clubbing, cyanosis, or edema. Pedal pulses intact. Negative Homans sign Labs Labs: Laboratory Tests Test 12/02/19 17:03 12/02/19 20:12 12/03/19 07:44 12/03/19 11:29 Glucose (Fingerstick) 177 mg/dL (70-99) 153 mg/dL (70-99) 141 mg/dL (70-99) 154 mg/dL (70-99) Assessment and Plan Assessmemt and Plan Problems Medical Problems: (1) Chest pain Status: Acute (2) DKA (diabetic ketoacidoses) Status: Acute (3) Hypertriglyceridemia Status: Acute (4) Pancreatitis Status: Acute Comment Review of Relevant I have reviewed the following items justino (where applicable) has been applied. Medications: Current Medications Medications (Trade) Dose Ordered Sig/Cecelia Route PRN Reason Start Time Stop Time Status Last Admin Dose Admin Oxycodone/ Acetaminophen (Percocet 10/325) 1 tab PRN Q4HRS PRN PO SEVERE PAIN 7-10 12/03/19 12:30 12/03/19 12:30 Iohexol (Omnipaque 300 Mg/ml) 75 ml 1X ONCE IV 12/03/19 12:30 12/03/19 12:31 DC 12/03/19 12:52 Justifications for Admission Other Justification YOLA ALEXANDER MD Dec 03, 2019 15:14
--- NOTE | 2019-12-03 15:52 | NUR ---
SW following. Spoke with RN and reviewed chart. Pt on IV pain medication and room air. Plan remains discharge home self-care. No anticipated SW needs.
[2019-12-03] MEDS: ENOXAPARIN 40 MG/0.4 ML SYRINGE. SQ SCH (17:18)
[2019-12-03 19:00] VITALS: BP 147/94
[2019-12-03] MEDS ORDERED: ATORVASTATIN CALCIUM 40 MG TABLET. PO SCH (21:00)
[2019-12-03 23:00] VITALS: BP 132/79
[2019-12-04] MEDS: oxyCODONE/APAP 10/325 1 TAB TABLET PO PRN ×3 (00:45→10:40)
[2019-12-04 03:00] VITALS: BP 142/83
[2019-12-04] MEDS: IV RINGERS,LACTATED 1000ML 1,000 ML IV SCH ×2 (04:06→07:40)
[2019-12-04] MEDS: MORPHINE SULFATE 4 MG/ML VIAL. IV PRN (04:10)
[2019-12-04 07:00] VITALS: BP 149/74
[2019-12-04] MEDS: SENNOSIDES/DOCUSATE 8.6/50MG TABLET. PO SCH (08:37)
[2019-12-04] MEDS: INSULIN LISPRO 300 UNITS/3 ML VIAL. SQ SCH ×4 (08:48→12:42)
[2019-12-04] MEDS: ELECTROLYTE (ICU) PROTOCOL. MC SCH (09:00)
[2019-12-04] MEDS: INSULIN GLARGINE SYRINGE. SQ SCH (10:50)
[2019-12-04 10:55] VITALS: BP 130/90
--- NOTE | 2019-12-04 12:10 | DISCH ---
DISCHARGE INSTRUCTIONS Condition on Discharge Condition on Discharge: Stable Activity After Discharge Activity Instructions for Disc: Activity as tolerated Lifting Instructions after Dis: No heavy lifting Driving Instructions after Dis: Do not drive, Do not drive today Diet after Discharge Diet after Discharge: Low Fat Contacting the DR[facility] after DC Call your doctor for: If your condition worsens Follow-Up Follow up with: PCP within 1 week of discharge YOLA ALEXANDER MD Dec 04, 2019 12:10
[2019-12-04] MEDS ORDERED: ATOR40TA59 PO (12:11)
[2019-12-04] MEDS ORDERED: OXYC1TAB22 PO (13:24)
[2019-12-04] MEDS ORDERED: INSU100V2 SQ (13:28)
[2019-12-04] MEDS ORDERED: INSU100V8 SQ (13:30)
--- NOTE | 2019-12-04 17:00 | NUR ---
SW following. Spoke with RN and reviewed chart. Pt to discharge home today with no SW needs.
--- NOTE | 2019-12-04 20:35 | PDOC3 ---
[facility]-Discharge Summary Date of Admission: Date of Admission: Nov 29, 2019 Date of Discharge: Date of Discharge: Dec 04, 2019 Admission Diagnosis: Admitting Diagnosis: Diabetic ketoacidosis improved New diagnosis of diabetes, hba1c 12.1 High anion gap metabolic acidosis Pancreatitis secondary to hypertriglyceridemia Obesity with a BMI of 35 Severe dehydration Dyslipidemia Discharge Diagnosis: Discharge Diagnosis: Diabetic ketoacidosis improved New diagnosis of diabetes, hba1c 12.1 High anion gap metabolic acidosis Pancreatitis secondary to hypertriglyceridemia Obesity with a BMI of 35 Severe dehydration Dyslipidemia Hospital Course: Hospital Course: 34-year-old gentleman with no significant past medical history who was in his usual state of health until approximately 3 weeks prior to his admission when he started noticing increased urination more thirst than usual. Patient denies odynophagia and he has been in his usual state of health until this morning around 10:00 in the morning he had not eaten yet and after drinking a glass of water he had the sudden onset of epigastric pain with vomiting of the gastric content. The patient felt quite ill with subsequent nausea after the event no diarrhea no dietary transgressions prior to this event. The patient due to the discomfort was brought to the emergency department for evaluation the patient did not also complain of an epigastric pain with bandlike fashion radiation to the back that he rated at a 10 out of 10 intensity sharp in nature with no other associated symptoms except for the above-mentioned nausea and vomiting. He has been evaluated in the emergency department and found to have hypertriglyceridemia and he is in DKA. Of note is that the patient was told about a month ago that he was prediabetic but most likely the patient has been a diabetic for a long time. He denies any family history of dyslipidemia and he will be admitted to the intensive care unit for further evaluation and treatment. The patient is in hemodynamically stable condition his mental status is normal plan of care has been explained detail all concerns were addressed to the best my ability 12/01/2019 No acute events overnight. Patient endorses some nausea no vomiting. Tolerating sips and chips. Epigastric abdominal pain has improved pain has now radiated towards the right lower quadrant. Patient's chart, labs, images were reviewed and discussed with RN 12/02/2019 No acute events overnight. Patient continues to have epigastric abdominal pain. Tolerating clear liquid diet. Patient's chart, labs, images were reviewed and discussed with RN 12/03/2019 No acute events overnight. Patient continues to have constant abdominal pain. I will order an abdominal CT for further evaluation. Patient's chart, labs, images were reviewed and discussed with RN By day of discharge, patient has had a BM and is tolerating diabetic diet. Pain has dramatically improved. Patient will need to go home with insulin and atorvastatin and will need close f/u with a PCP for management for his diabetes. The rest of his hospital course was uneventful. Activity: Activity: Resume previous activity Medications: Home Meds Active Scripts Atorvastatin Calcium (ATORVASTATIN CALCIUM) 40 Mg Tablet, 40 MG PO QHS for DLD for 30 Days, #30 TAB Prov:YOLA ALEXANDER MD 12/04/19 Reported Medications Insulin Glargine,Hum.rec.anlog (LANTUS) 100 Unit/1 Ml Vial, 15 UNITS SQ AFTRNOON for blood sugar control, VIAL 12/04/19 Insulin Lispro (Humalog) 100 Unit/1 Ml Vial, 8 UNIT SQ TIDBFRMEAL for hypergly cemia (for blood sugar, EACH 12/04/19 Oxycodone/Apap 10-325 (PERCOCET 10-325 MG TABLET ) 1 Each Tablet, 1 TAB PO PRN Q4-6HRS PRN for PAIN MDD 6 Tablet(s) for 5 Days, #30 TAB 0 Refills 12/04/19 Scheduled Atorvastatin Calcium (Atorvastatin Calcium), 40 MG PO QHS Insulin Glargine,Hum.rec.anlog (Lantus), 15 UNITS SQ AFTRNOON, (Reported) Insulin Lispro (Humalog), 8 UNIT SQ TIDBFRMEAL, (Reported) Scheduled PRN Oxycodone/Apap 10-325 (Percocet 10-325 Mg Tablet ), 1 TAB PO PRN Q4-6HRS PRN f or PAIN, (Reported) Total Time: Total Time: Total time spent was 45 minutes in preparing scripts, discharge planning with SW and RN, and preparing this discharge summary. Justicifation of Admission Dx: Justifications for Admission: Justification of Admission Dx: Yes YOLA ALEXANDER MD Dec 04, 2019 20:35
== END 2019-12-04 13:45 | disposition home or self-care (01) | DRG 637 ==
LOC: ER 14:17 → 1 WEST ICU 16:33 → 5 NORTH 11-30 13:44
PROVIDERS: ADMIT Internal Medicine; ATTEND Internal Medicine
DX: E11.10 Type 2 diabetes mellitus with ketoacidosis without coma (principal); K85.90 Acute pancreatitis without necrosis or infection, unspecified; E87.1 Hypo-osmolality and hyponatremia; E78.1 Pure hyperglyceridemia; E78.5 Hyperlipidemia, unspecified; E86.0 Dehydration; E66.9 Obesity, unspecified; Z68.35 Body mass index [BMI] 35.0-35.9, adult
CPT/HCPCS: 36415; 71045; 74170; 76705; 80048; 80053; 82962; 83036; 83690; 83735; 84100; 84478; 84484; 85007; 85025; 93005; 96361; 96374; 96375; 99291; J1170; J1650; J1815; J2270; J2405; J3010; J3480; J3490; J7030; J7042; J7120; Q9967; G0378